=== PATIENT | male | born 1995 | race Caucasian/White ===

== ENCOUNTER → 2023-08-12 14:26 | Outpatient (CLI) | payer OTHER, SELFPAY ==
[2023-08-12 15:10] LABS: Semen Sperm Prescence Post-Vas Absent (ABSENT)
== END ==
PROVIDERS: PCP Student in an Organized Health Care Education/Training Program; Referring Provider Specialist; Visit Provider Specialist
DX: Z98.52 Vasectomy status (principal)
CPT/HCPCS: 89321